=== PATIENT | male | born 1955 | race Caucasian/White ===

== ENCOUNTER 2016-10-13 08:46 | Emergency (ER) | payer BC ==
--- NOTE | ~2016-10-13 | CT4 ---
[facility] A Service of [facility] [place] RADIOLOGY TEXT RESULTS PATIENT: FREDRICK QUISPE LOCATION: SED : 59 UNIT #: [id number] AGE: [address]: Leonidas Roberto MD SEX: M ORDER DR: [id number] [place] [id number] MR#: [id number] Acc #: [id number] NAME: FREDRICK QUISPE : 1955 SEX: M STUDY DATE/TIME: 10/13/2016 09:35 UNIT: SED ROOM: STUDY DESCRIPTION: CT Abd and Pelv Wo Cont Attending Physician: Leonidas Roberto M.D. Ordering Physician: Leonidas Roberto M.D. Primary Care Physician: Jan Bautista M.D. MEDICAL IMAGING REPORT This report is preliminary unless electronic signature is present. EXAM CT abdomen and pelvis without contrast, 10/13/2016 09:35 hours HISTORY 61-year-old man with history of left flank pain radiating into chest with nausea, vomiting, sweating, beginning this morning at 08:30 hours. COMPARISON None TECHNIQUE Helical noncontrasted images were obtained from the lung bases through the pubic symphysis without oral or intravenous contrast. Sagittal and coronal reconstructions were performed. Total exam DLP 869 mGy-cm. This CT exam was performed with one or more of the following radiation dose reduction techniques: automatic exposure control, adjustment of mA and/or kV according to patient size, and iterative reconstruction. FINDINGS Images through the lung bases are clear. There is a small hiatal hernia of the sliding type. Noncontrasted images through the abdomen demonstrate a normal appearance to the liver, spleen, pancreas, gallbladder and bile ducts. The adrenal glands are normal. The right kidney demonstrates a 3.0 mm nonobstructing stone in the upper pole and 2.0 mm nonobstructing stone in the lower pole with punctate stones additionally in the lower pole. There is no right-sided pelvocaliectasis, ureterectasis or ureteral stone. The left kidney demonstrates multiple small calcifications in the upper, [facility] A Service of [facility] RADIOLOGY TEXT RESULTS PATIENT: FREDRICK QUISPE LOCATION: [facility] [place] : 59 UNIT #: [id number] AGE: [address]: Leonidas Roberto MD SEX: M ORDER DR: mid and lower pole consistent with multiple nonobstructing stones. There is moderate pelvocaliectasis with a stone at the left ureteropelvic junction measuring 6.0 mm anterior to posterior x 7.0 mm cephalocaudad. There is stranding of the fat around the renal pelvis suggesting a moderate to high-grade obstruction. The distal left ureter is decompressed and there is no distal left stone. The bladder is normal. The stomach and small bowel are normal. Terminal ileum and appendix are normal. There is moderate stool in the right colon. There is no colonic wall thickening. IMPRESSION The patient has multiple very small nonobstructing intrarenal calculi. There is an 8.0 mm stone at the left ureteropelvic junction resulting in moderate to high-grade obstruction with pelvocaliectasis and linear stranding in the fat around the renal pelvis. STAT * RESULT Dictated by... Verito Michel M.D. THIS IS AN ELECTRONICALLY VERIFIED REPORT Verito Michel M.D. at 10/13/2016 2:31 PM Kaye TD: 10/13/2016 09:59 JOB #: [id number] MEDICAL IMAGING REPORT Page 1 of 1
--- NOTE | ~2016-10-13 | EKG ---
PATIENT: FREDRICK QUISPE UNIT #: [id number] Ventricular Rate: 61 BPM Atrial Rate: 61 BPM P-R Interval: 126 ms QRS Duration: 88 ms Q-T Interval: 422 ms QTC Calculation(Bezet): 424 ms P [place]: 36 degrees Calculated R [place]: 19 degrees Calculated T [place]: 45 degrees Diagnosis Line: Normal sinus rhythm Diagnosis Line: Normal ECG Diagnosis Line: No previous ECGs available Diagnosis Line: Confirmed by CARIDAD MCCORMICK MD ([id number]) on 10/14/2016 Diagnosis Line: 7:03:13 PM INTERPRETING MD: JACE BORRERO
[2016-10-13] MEDS ORDERED: ZOCOR (08:51)
[2016-10-13] MEDS ORDERED: LISINOPRIL (08:51)
[2016-10-13] MEDS ORDERED: JANUVIA25 MG (08:51)
[2016-10-13] MEDS ORDERED: METFORMIN (08:51)
[2016-10-13 09:02] LABS: BASOPHIL# 0.1 X10e3 (0-0.3); BASOPHIL% 1.1 % (0-2.5); EOSINOPHIL# 0.2 X10e3 (0-0.7); EOSINOPHIL% 2.7 % (0.0-7.0); HEMATOCRIT 44.7 % (38.0-50.0); HEMOGLOBIN 15.2 gm/dL (13.0-16.0); LYMPHOCYTE# 3.4 X10e3 (1.0-3.5); LYMPHOCYTE% 41.2 % (17.0-45.0); MEAN CELL VOLUME 94.1 FL (83-96); MEAN CORPUSCULAR HEMOGLOBIN 32.1 PG (28-34); MEAN CORPUSCULAR HGB CONC 34.2 g/dL (30-36); MEAN PLATELET VOLUME 8.7 FL (6.5-11.5); MONOCYTE# 0.6 X10e3 (0-1.0); MONOCYTE% 7.6 % (3.0-12.0); NEUTROPHIL# 3.9 X10e3 (1.5-7.1); NEUTROPHIL% 47.4 % (40-75); PLATELET COUNT 209 X10e3 (140-420); RED BLOOD COUNT 4.75 X10e (3.90-5.60); RED CELL DISTRIBUTION WIDTH 12.7 % (11.0-15.5); WHITE BLOOD COUNT 8.3 X10e3 (4.0-10.5)
[2016-10-13 09:09] LABS: DIFF IND NO
[2016-10-13 09:14] LABS: PROTHROMBIN TIME (PATIENT) 11.4 SECONDS (9.5-12.4)
[2016-10-13 09:14] LABS: POC - CKMB <1.0 ng/mL (0.0-7.9)
[2016-10-13 09:15] LABS: POC - TROPONIN <0.05 ng/mL (<=0.05)
[2016-10-13 09:22] LABS: ALBUMIN SERUM 4.6 g/dL (3.5-5.0); BILIRUBIN, DIRECT 0.1 mg/dL (0.0-0.2); BILIRUBIN,INDIRECT 0.6 mg/dL (0.0-0.9); BILIRUBIN,TOTAL 0.7 mg/dL (0.2-2.0); BUN/CREATININE RATIO 21.25; CALCIUM SERUM 8.9 mg/dL (8.4-10.2); CREATININE SERUM 0.8 mg/dL (0.6-1.4); GLOM FILT RATE Estimated 97.8 mL/min (>60); PARTIAL THROMBOPLASTIN TIME 23.5 SECONDS (25.6-38.1); POTASSIUM 4.2 mmol/L (3.5-5.1); PROTEIN TOTAL SERUM 6.7 g/dL (6.0-8.3)
[2016-10-13 10:57] LABS: URINE SOURCE CLEAN CATCH
[2016-10-13 10:59] LABS: URINE APPEARANCE CLEAR; URINE BILIRUBIN NEG (NEG); URINE BLOOD 1+ (NEG); URINE COLOR YELLOW; URINE GLUCOSE NEG (NORM); URINE KETONE NEG (NEG); URINE LEUKOCYTE ESTERASE NEG (NEG); URINE NITRATE NEG (NEG); URINE PROTEIN NEG (NEG); URINE SPECIFIC GRAVITY 1.025 (1.003-1.035); URINE UROBILINOGEN 0.2 MG/DL (NORM)
[2016-10-13 11:06] LABS: MICRO INDICATED? YES
[2016-10-13 11:19] LABS: CULTURE INDICATED? NO; URINE BACTERIA NEG (NEG); URINE WBC 0-2 /[HPF] (0-5)
== END 2016-10-13 12:08 | disposition home or self-care (01) ==
LOC: SED 08:46
PROVIDERS: Emergency Medicine
DX: R11.2 Nausea with vomiting, unspecified (principal); R10.9 Unspecified abdominal pain; Z88.2 Allergy status to sulfonamides
CPT/HCPCS: 36415; 74176; 80048; 80076; 81003; 82553; 83690; 83874; 84484; 85025; 85610; 85730; 93005; 96374; 96375; 96376; 99284; J1170; J1885; J2405; J2550